=== PATIENT | female | born 1980 | race Hispanic/Latino ===

== ENCOUNTER → 2019-01-23 | Outpatient (REF) | payer OTHER ==
[~2019-01-23] MED LIST: ACYCLOVIR800 MG PO; ALAVERT10 MG PO; AMOX/K CLAV875 M1 PO; ANTI-FUNGAL12 TOP; BACTRIM DS1 TAB PO; CLOTRIMAZOLE1 %; CONCEPT OB PO; DIFLUCAN150 MG PO; ERRIN0.35 MG PO; FERROUS SULF325 M1 PO; FLONASE 60 DOS0.05 %; INTEGRA F PO; LEVOTHYROXIN25 MC1 PO; MUPIROCIN2 %; PRENATAL1 TAB PO; SERTRALINE25 MG PO; SYNTHROID50 MCG PO; ZOVIRAX400 MG PO
[2019-01-23 10:41] LABS: HEMATOCRIT 37.6 % (37.0-47.0); HEMOGLOBIN 12.2 g/dl (12.0-16.0); IMMATURE GRANULOCYTES 0.4 % (0.0-5.0); MEAN CELL VOLUME 86.2 fL CALC (80.0-100.0); MEAN CORPUSCULAR HGB CONC 32.4 g/L CALC (32.0-36.0); NEUT# 4.9 thou/uL (2.00-7.15); RED BLOOD COUNT 4.36 mill/uL (4.20-5.60)
[2019-01-23 11:32] LABS: ALBUMIN 3.8 g/dL (3.2-5.0); BILIRUBIN, TOTAL 0.2 mg/dL (0.0-1.4); C-REACTIVE PROTEIN 2.6 mg/dL (0-0.9); CREATININE 0.7 mg/dL (0.5-1.0); TOTAL PROTEIN 6.6 g/dL (6.3-8.2)
[2019-01-23 12:31] LABS: DIRECT BILIRUBIN 0.2 mg/dl (0.0-0.3)
== END | disposition home or self-care (01) | DRG 547 ==
LOC: LAB 10:06
PROVIDERS: ATTEND Internal Medicine Rheumatology
DX: M06.09 Rheumatoid arthritis without rheumatoid factor, multiple sites (principal); Z79.899 Other long term (current) drug therapy

== ENCOUNTER 2019-07-15 22:44 | Emergency (ER) | payer OTHER ==
[~2019-07-15] VITALS: Ht 149.9 cm; Wt 89.5 kg
[2019-07-15 23:16] LABS: GFR > 60 ML/MIN (>=60 (CALC)); GFR FOR AFR.AMER. > 60 ML/MIN (>=60 (CALC))
[2019-07-15 23:18] LABS: HEMATOCRIT 41.5 % (37.0-47.0); HEMOGLOBIN 13.3 g/dl (12.0-16.0); IMMATURE GRANULOCYTES 0.6 % (0.0-5.0); MEAN CELL VOLUME 83.2 fL CALC (80.0-100.0); MEAN CORPUSCULAR HGB 26.7 pG CALC (26.0-32.0); NEUT# 5.86 thou/uL (2.00-7.15); RED BLOOD COUNT 4.99 mill/uL (4.20-5.60); RED CELL DISTRI WIDTH 16.9 % (11.5-15.5)
[2019-07-15 23:30] LABS: ALBUMIN 4.5 g/dL (3.2-5.0); ALKALINE PHOSPHATASE 77 u/l (38-126); ANION GAP 13 (6-22 (CALC)); BILIRUBIN, TOTAL 0.2 mg/dL (0.0-1.4); BUN 10 mg/dL (7-17); BUN/CREATININE RATIO 15 (12-20 (CALC)); CARBON DIOXIDE 25 mmol/l (22-30); CHLORIDE 105 mmol/l (95-108); CREATININE 0.7 mg/dL (0.5-1.0); ETHYL ALCOHOL 0 mg/dl (0-30); GFR > 60 ML/MIN (>=60 (CALC)); GFR FOR AFR.AMER. > 60 ML/MIN (>=60 (CALC)); MAGNESIUM 1.9 mg/dL (1.6-2.3); POTASSIUM 3.7 mmol/l (3.5-5.1); SGOT/AST 17 u/l (14-36); SODIUM 139 mmol/l (137-146); TOTAL PROTEIN 7.4 g/dL (6.3-8.2)
[2019-07-15] MEDS ORDERED: SULFASALAZIN500 M1 PO (23:31)
[2019-07-15] MEDS ORDERED: ZETIA10 MG PO (23:32)
[2019-07-15] MEDS ORDERED: FERROUS SULF325 M2 PO (23:33)
[2019-07-15] MEDS ORDERED: LEVOTHYROXIN137 MCG PO (23:33)
[2019-07-15] MEDS ORDERED: BUPROPION HCL150 M1 PO (23:36)
[2019-07-15] MEDS ORDERED: LARIN FE PO (23:37)
[2019-07-15 23:39] LABS: ACT PARTIAL THROMBO TIME 27.2 SECONDS (20.0-32.5); INTERNATIONAL NORMALIZED RATIO 0.9 RATIO (0.7-1.3); PROTHROMBIN TIME 9.9 SECONDS (9.0-12.5)
[2019-07-16 01:23] LABS: URINE BILIRUBIN - DIPSTICK NEGATIVE (NEGATIVE); URINE BLOOD DIPSTICK NEGATIVE (NEGATIVE); URINE COLOR YELLOW; URINE GLUCOSE - DIPSTICK NEGATIVE (NEGATIVE); URINE KETONE NEGATIVE (NEGATIVE); URINE LEUK ESTERASE NEGATIVE (NEGATIVE); URINE NITRITE - DIPSTICK NEGATIVE (Negative); URINE PROTEIN - DIPSTICK NEGATIVE (NEG-TRACE); URINE SPECIFIC GRAVITY <=1.005; URINE UROBILINOGEN - DIPSTICK 0.2 E.U./dL (0.2)
[2019-07-16 01:55] LABS: BARBITURATES NEGATIVE (NEGATIVE); COCAINE NEGATIVE (NEGATIVE); METHADONE NEGATIVE (NEGATIVE); OXCYCODONE NEGATIVE (NEGATIVE); TETRAHYDROCANNABIONOL NEGATIVE (NEGATIVE); TRICYLIC ANTIDEPRESSANTS NEGATIVE (NEGATIVE)
[2019-07-16 02:25] VITALS: BP 101/64
== END 2019-07-16 02:20 | disposition home or self-care (01) | DRG 93 ==
LOC: ED 22:44
DX: R20.2 Paresthesia of skin (principal); R55 Syncope and collapse; F41.9 Anxiety disorder, unspecified; F32.9 Major depressive disorder, single episode, unspecified; E05.90 Thyrotoxicosis, unspecified without thyrotoxic crisis or storm

== ENCOUNTER 2022-11-01 20:08 | Emergency (ER) | payer OTHER ==
[2022-11-01] VITALS (9 sets, daily range): BP systolic 115–150; BP diastolic 78–102
[~2022-11-01] VITALS: Ht 149.9 cm; Wt 98.6 kg
[~2022-11-01 20:08] MED LIST changes: +BUPROPION HCL150 M1 PO; +FERROUS SULF325 M2 PO; +LARIN FE PO; +LEVOTHYROXIN137 MCG PO; +SULFASALAZIN500 M1 PO; +ZETIA10 MG PO
[2022-11-01] MEDS ORDERED: INDERAL 40MG TA40 MG PO (20:40)
[2022-11-01] MEDS ORDERED: VITAMIN B-121000 MCG PO (20:41)
[2022-11-01] MEDS ORDERED: VITAMIN D1000 UNIT PO (20:41)
[2022-11-01 21:17] LABS: URINE BILIRUBIN - DIPSTICK NEGATIVE (NEGATIVE); URINE BLOOD DIPSTICK SMALL (NEGATIVE); URINE COLOR YELLOW; URINE GLUCOSE - DIPSTICK NEGATIVE (NEGATIVE); URINE KETONE NEGATIVE (NEGATIVE); URINE LEUK ESTERASE NEGATIVE (NEGATIVE); URINE PROTEIN - DIPSTICK NEGATIVE (NEG-TRACE); URINE UROBILINOGEN - DIPSTICK 0.2 E.U./dL (0.2)
[2022-11-01 21:20] LABS: BASO% 0.5 % (0-3); EOS% 2.2 % (0-8); HEMATOCRIT 40.4 % (37.0-47.0); HEMOGLOBIN 13.2 g/dl (12.0-16.0); IMMATURE GRANULOCYTES 0.2 % (0.0-5.0); LYMPH% 34.7 % (15-41); MEAN CELL VOLUME 83.5 fL CALC (80.0-100.0); MEAN CORPUSCULAR HGB 27.3 pG CALC (26.0-32.0); MEAN CORPUSCULAR HGB CONC 32.7 g/dL CAL (32.0-36.0); MONO% 6.4 % (2-13); NEUT# 4.9 thou/uL (2.00-7.15); RED BLOOD COUNT 4.84 mill/uL (4.20-5.60); RED CELL DISTRI WIDTH 13.5 % (11.5-15.5)
[2022-11-01 21:23] LABS: URINE NITRITE - DIPSTICK NEGATIVE (Negative)
[2022-11-01 21:28] LABS: ALBUMIN 4.5 g/dL (3.2-5.0); ALKALINE PHOSPHATASE 91 u/l (38-126); ANION GAP 13 (6-22 (CALC)); BUN 15 mg/dL (7-17); BUN/CREATININE RATIO 20 (12-20 (CALC)); CARBON DIOXIDE 28 mmol/l (22-30); CHLORIDE 102 mmol/l (95-108); CREATININE 0.7 mg/dL (0.5-1.0); GFR FOR AFR.AMER. > 60 ML/MIN (>=60 (CALC)); GFR OTHER RACES > 60 ML/MIN (>=60 (CALC)); SGOT/AST 24 u/l (14-36); SODIUM 139 mmol/l (137-146); TOTAL PROTEIN 7.9 g/dL (6.3-8.2)
[2022-11-01 21:29] LABS: BILIRUBIN, TOTAL 0.3 mg/dL (0.0-1.4)
[2022-11-01 21:30] LABS: URINE SQUAMOUS EPITHELIAL CELL FEW EPI/hpf (0-FEW); URINE WBC 0-2 WBC/hpf (0-5)
[2022-11-01 21:35] LABS: ACT PARTIAL THROMBO TIME 27.6 SECONDS (20.0-32.5); PROTHROMBIN TIME 9.7 SECONDS (9.0-12.5)
[2022-11-02 02:20] VITALS: BP 115/85
== END 2022-11-02 02:25 | disposition home or self-care (01) | DRG 74 ==
LOC: ED 20:08
PROVIDERS: Emergency Medicine
DX: G62.9 Polyneuropathy, unspecified (principal); M79.621 Pain in right upper arm; E66.9 Obesity, unspecified
CPT/HCPCS: Q9967